=== PATIENT | female | born 1975 | race Caucasian/White ===

== ENCOUNTER → 2017-02-23 | Outpatient (CLI) | payer OTHER | LOC: CIMAGING 15:51 | PROVIDERS: ATTEND Internal Medicine | DX: R93.8 Abnormal findings on diagnostic imaging of other specified body structures (principal); N92.6 Irregular menstruation, unspecified; R10.2 Pelvic and perineal pain; R14.0 Abdominal distension (gaseous) | CPT/HCPCS: 76856-PO ==

== ENCOUNTER → 2017-03-15 | Outpatient (CLI) | payer OTHER | LOC: FIMAGING 12:41 | PROVIDERS: ATTEND Internal Medicine | DX: Z12.31 Encounter for screening mammogram for malignant neoplasm of breast (principal) | CPT/HCPCS: G0202 ==

== ENCOUNTER 2017-07-30 13:21 | Emergency (ER) | payer OTHER ==
[2017-07-30 15:32] VITALS: BP 107/76
[2017-07-30] MEDS ORDERED: NS 1,000 ML IV ONE (15:51)
--- NOTE | 2017-07-30 16:58 | EDPHY ---
H & P Time Seen by Provider: 07/30/17 15:44 HPI/ROS: HPI Upper abdominal pain. 42-year-old female by private vehicle. This patient has had a history of intermittent upper abdominal discomfort which she describes as a burning sensation which comes and goes. She reports that she has had for several months. Usually goes away after short while. She reports that she developed this sensation this morning and it remained present throughout the day. She called her primary care physician and asked to be seen. She was not able to get in to see her primary care physician and was referred to the emergency department for evaluation. She denies any associated nausea. She has not had any vomiting. No urinary complaints. No fever. No diarrhea. No bloody or melenic stool. Prior history includes colitis. ROS: Constitutional: No fever, no chills. No weakness. Eyes: No discharge. No changes in vision. ENT: No sore throat. No nasal congestion or rhinorrhea. Respiratory: No cough. No shortness of breath. Cardiac: No chest pain, no palpitations. Gastrointestinal: As above, no vomiting, no diarrhea. Genitourinary: No hematuria. No dysuria or increased frequency with urination. Musculoskeletal: No back pain. No neck pain. No myalgias or arthralgias. Skin: No rashes. Neurological: No headache. No focal weakness or altered sensation. Past medical history: Colitis, hypothyroid, hernia, pelvic congestion syndrome. She has seen Dr. Antonio Quinonez in the past for her colitis. She only takes [place] thyroid. No other medications. Social history: Nonsmoker. She is here by herself. No alcohol. Physical Exam: General Appearance: Alert, no distress. This patient is responding to questions appropriately and in full sentences. This patient appears well- hydrated and well-nourished. Eyes: Pupils equal and round no pallor or injection. No lid edema, erythema or injection. Respiratory: There are no retractions, lungs are clear to auscultation with good air movement bilaterally. Cardiovascular: Regular rate and rhythm. No murmur. Gastrointestinal: Abdomen is soft and nontender on deep palpation throughout, no masses, bowel sounds normal. No focal tenderness at McBurney's point. No Hebert sign. Neurological: Motor sensory function is grossly intact. Cranial nerves are normal. Gait is normal. Skin: Warm and dry, no rashes. Musculoskeletal: Neck is supple and nontender. Extremities are symmetrical. All joints range without pain or impingement. Psychiatric: No agitation. No depression. Database: EKG: Imaging: Procedures: Emergency department course: Vital signs reviewed and are normal. A urinalysis was ordered by the nursing staff from triage. This is normal. On my evaluation of the patient she has a benign abdomen. I ordered blood work on her prior to going in the room to see her but she declined this and wanted to be seen and examined prior to this being done. After my evaluation I offered to do some blood tests including liver function testing and lipase. She declines this at this time. At this juncture she feels comfortable going home and is requesting discharge. I will start her on Protonix at 40 mg daily. She will follow up with her environmental technical officer next week for re-evaluation. Return to emergency department precautions were thoroughly discussed with her. All of her questions were answered. She was discharged in good condition. Differential Diagnosis: The differential diagnosis on this patient includes but is not limited to gastritis, peptic ulcer disease. Perforated peptic ulcer, pancreatitis, cholecystitis, bowel obstruction, other surgical etiology unlikely. This represents a partial list of diagnoses considered. These considerations are based on history, physical exam, past history, reassessment and diagnostic testing. Smoking Status: Never smoked Constitutional: Initial Vital Signs Temperature (C) 36.6 C 07/30/17 13:33 Heart Rate 78 07/30/17 13:33 Respiratory Rate 18 07/30/17 13:33 Blood Pressure 109/78 07/30/17 13:33 O2 Sat (%) 98 07/30/17 13:33 O2 Delivery Mode Room Air Allergies/Adverse Reactions: HAYFEVER Allergy (Mild, Uncoded 03/18/11 14:58) Other-Enter Comments Home Medications: Medication Instructions Recorded ARMOUR THYROID 07/30/17 Pantoprazole Sodium [Protonix] 40 mg PO DAILY #30 tab 07/30/17 Medical Decision Making - Data Points Laboratory Results: 07/30/17 14:52 Urine Color YELLOW Urine Appearance CLEAR Urine pH 7.0 (5.0-7.5) Ur Specific [place] 1.004 (1.002-1.030) Urine Protein NEGATIVE (NEGATIVE) Urine Ketones NEGATIVE (NEGATIVE) Urine Blood NEGATIVE (NEGATIVE) Urine Nitrate NEGATIVE (NEGATIVE) Urine Bilirubin NEGATIVE (NEGATIVE) Urine Urobilinogen NEGATIVE EU EU (0.2-1.0) Ur Leukocyte Esterase NEGATIVE (NEGATIVE) Urine Glucose NEGATIVE (NEGATIVE) Departure - Departure Disposition: Home, Routine, Self-Care Clinical Impression: Gastritis Condition: Good Instructions: Gastritis (ED) Additional Instructions: Read and follow provided instructions. Follow-up with your primary care physician or environmental technical officer early next week for re-evaluation as discussed. Take medication as prescribed to lower the acid production in your stomach. Return to the emergency department for worsening pain, vomiting, fever, blood in her stool, black stool or other serious concerns. Referrals: Sangeeta Alexander MD [Primary Care Provider] - As per Instructions Antonio Quinonez MD [Medical Doctor] - As per Instructions Prescriptions: Pantoprazole Sodium [Protonix] 40 mg PO DAILY #30 tab
== END 2017-07-30 17:12 | disposition home or self-care (01) ==
DX: K29.70 Gastritis, unspecified, without bleeding (principal)

== ENCOUNTER → 2017-08-13 | Outpatient (CLI) | payer OTHER | LOC: FIMAGING 10:12 | PROVIDERS: ATTEND Radiology Diagnostic Radiology | DX: N94.89 Other specified conditions associated with female genital organs and menstrual cycle (principal) ==

== ENCOUNTER → 2018-03-17 | Outpatient (CLI) | payer OTHER | LOC: FIMAGING 12:23 | PROVIDERS: ATTEND Internal Medicine | DX: Z12.31 Encounter for screening mammogram for malignant neoplasm of breast (principal) ==